=== PATIENT | female | born 1990 | race Caucasian/White ===

== ENCOUNTER 2019-10-29 05:07 | Emergency (ER) | payer OTHER ==
--- NOTE | 2019-10-29 05:40 | PDOC ---
History of Present Illness - General Stated Complaint: VOMITING Time Seen by Provider: 10/29/19 05:40 History Source: Patient Exam Limitations: No Limitations - History of Present Illness Initial Comments: 10/29/19 05:49 39y previously healthy F presenting w vomiting starting at 11pm, diarrhea starting few hours later w mild epigastric pain. Did not try any meds. Denies fever, chest pain, urinary symptoms. Past History - Past Medical History Allergies/Adverse Reactions: Allergies Allergy/AdvReac Type Severity Reaction Status Date / Time No Known Allergies Allergy Verified 10/29/19 05:56 Home Medications: Ambulatory Orders NK [No Known Home Medication] 10/29/19 Review of Systems - Review of Systems Constitutional: No: Chills, Fever HEENTM: No: Eye Pain, Nose Pain Respiratory: No: Cough, Shortness of Breath Cardiac (ROS): No: Chest Pain, Palpitations ABD/GI: Yes: Nausea, Vomiting. No: Abdominal Distended, Constipated, Diarrhea : No: Burning, Dysuria Musculoskeletal: No: Back Pain, Joint Pain Integumentary: No: Bruising, Flushing Neurological: No: Headache, Seizure Psychiatric: No: Anxiety, Depression Endocrine: No: Excessive Sweating, Intolerance to Cold, Intolerance to Heat Hematologic/Lymphatic: No: Anemia, Blood Clots *Physical Exam - Physical Exam General Appearance: Yes: Nourished, Appropriately Dressed, Mild Distress HEENT: positive: EOMI, SUNI, Normal Voice, Hearing Grossly Normal. negative: Scleral Icterus (R), Scleral Icterus (L) Respiratory/Chest: positive: Lungs Clear, Normal Breath Sounds. negative: Chest Tender, Respiratory Distress Cardiovascular: positive: Regular Rhythm, Regular Rate, S1, S2. negative: Edema , Murmur Gastrointestinal/Abdominal: positive: Normal Bowel Sounds, Tender (mild epigastric), Flat, Soft. negative: Organomegaly Musculoskeletal: negative: CVA Tenderness (R), CVA Tenderness (L) Extremity: positive: Delayed Capillary Refill Integumentary: positive: Normal Color, Dry Neurologic: positive: development planner II-XII NML intact, Fully Oriented, Alert, Normal Response, Responsive. negative: Sensory Deficit, Confused, Disoriented Medical Decision Making - Medical Decision Making 10/29/19 05:51 39y previously healthy F presenting w vomiting, diarrhea, mild epigastric pain. gastroenteritis vs . Low concern for pancreatitis vs cholecystitis ( neg russell) Given 1L NS, zofran, pepcid, maalox Anticipate DC home - pending labs Discharge - Discharge Information Problems reviewed: Yes Clinical Impression/Diagnosis: Vomiting Qualifiers: Vomiting type: unspecified Vomiting Intractability: non-intractable Nausea presence: with nausea Qualified Code(s): R11.2 - Nausea with vomiting, unspecified Condition: Improved Disposition: HOME - Follow up/Referral - Patient Discharge Instructions - Post Discharge Activity
[2019-10-29] MEDS ORDERED: SODIUM CHLORIDE 0.9% 500 ML INFUS.BAG IV ONE (05:46)
[2019-10-29] MEDS ORDERED: FAMOTIDINE 20 MG/50 ML IVPB 20 MG/50 ML MG IVPB ONE ×2 (05:46→06:18)
--- NOTE | 2019-10-29 05:53 | PDOC ---
Attending Attestation - Resident Resident Name: Hilda,Franck - ED Attending Attestation I have performed the following: I have examined & evaluated the patient, The case was reviewed & discussed with the resident, I agree w/resident's findings & plan - HPI HPI: 10/29/19 06:59 Pt comes with viral gastroenteritis. - Physicial Exam PE: 10/29/19 07:00 Pt is warm to the touch, but afebrile/ Pt has no flank pain Heart and lungs normal Abd flat soft NT ND no ext edema - Medical Decision Making 10/29/19 07:00 Pt will be hydrated. We placed and IV and allyn off labs. She will by reevaluated by the day team
[2019-10-29 06:02] VITALS: BMI 26.7
[2019-10-29] MEDS ORDERED: ONDANSETRON 4 MG/2 ML VIAL IVPUSH ONE (06:15)
[2019-10-29] MEDS ORDERED: MAG HYDROX/AL HYDROX/SIMETH 30 ML UNIT-DOSE CUP PO ONE (06:15)
[2019-10-29] MEDS ORDERED: MAG HYDROX/AL HYDROX/SIMETH 30 ML UNIT-DOSE CUP ONE (06:17)
[2019-10-29] MEDS ORDERED: ONDANSETRON 4 MG/2 ML VIAL ONE (06:18)
[2019-10-29 07:18] LABS: BASO % 0.2 % (0-2.0); HEMATOCRIT 42.5 % (32.4-45.2); HEMOGLOBIN 14.8 GM/dL (10.7-15.3); MCH 30.2 pg (25.7-33.7); MCHC 34.7 g/dl (32.0-36.0); MEAN CELL VOLUME 86.8 fl (80-96); MONO % 1.8 % (3.8-10.2); RBC 4.89 M/mm3 (3.60-5.2); RDW 12.1 % (11.6-15.6); WHITE BLOOD COUNT 10.8 K/mm3 (4.0-10.0)
[2019-10-29 07:20] LABS: PH,URINE 5.5 (5.0-8.0); URINE APPEARANCE CLOUDY; URINE BILIRUBIN NEGATIVE (NEGATIVE); URINE COLOR YELLOW; URINE GLUCOSE (UA) NEGATIVE (NEGATIVE); URINE KETONE 1+ (NEGATIVE); URINE LEUK ESTERASE NEGATIVE (NEGATIVE); URINE NITRITE NEGATIVE (NEGATIVE); URINE PROTEIN NEGATIVE (NEGATIVE); URINE UROBILINOGEN 0.2 mg/dL (0.2-1.0)
[2019-10-29 07:45] LABS: ALBUMIN 4.1 g/dl (3.4-5.0); BILIRUBIN,TOTAL 0.5 mg/dL (0.2-1); BLOOD UREA NITROGEN 18.1 mg/dL (7-18); CALCIUM 9.4 mg/dL (8.5-10.1); CREATININE 0.7 mg/dL (0.55-1.3); TOT PROT 8.4 g/dl (6.4-8.2)
[2019-10-29 11:23] LABS: ANISOCYTOSIS 1+; MACROCYTOSIS 0; OVALOCYTE 1+; PLATELET ESTIMATE DECREASED; TOXIC GRANULATION 2+
--- NOTE | 2019-10-29 11:58 | PDOC ---
*Physical Exam - Vital Signs Last Vital Signs Temp Pulse Resp BP Pulse Ox 98.5 F 82 17 115/84 100 10/29/19 05:15 10/29/19 05:15 10/29/19 05:15 10/29/19 05:15 10/29/19 05:15 ED Treatment Course - LABORATORY CBC & Chemistry Diagram: 10/29/19 06:45 10/29/19 06:45 - ADDITIONAL ORDERS Additional order review: Laboratory Results 10/29/19 10/29/19 10/29/19 06:45 06:45 06:45 Sodium Potassium Chloride Carbon Dioxide Anion Gap BUN Creatinine Est GFR (CKD-EPI)AfAm Est GFR (CKD-EPI)NonAf Random Glucose Lactic Acid 1.8 Calcium Total Bilirubin AST ALT Alkaline Phosphatase Total Protein Albumin Lipase Serum , Qual Negative Urine Color Yellow Urine Appearance Cloudy Urine pH 5.5 Ur Specific [place] 1.029 Urine Protein Negative Urine Glucose (UA) Negative Urine Ketones 1+ H Urine Blood Negative Urine Nitrite Negative Urine Bilirubin Negative Urine Urobilinogen 0.2 Ur Leukocyte Esterase Negative 10/29/19 06:45 Sodium 138 Potassium 4.0 Chloride 103 Carbon Dioxide 27 Anion Gap 7 L BUN 18.1 H Creatinine 0.7 Est GFR (CKD-EPI)AfAm 137.62 Est GFR (CKD-EPI)NonAf 118.74 Random Glucose 112 H Lactic Acid Calcium 9.4 Total Bilirubin 0.5 AST 20 ALT 25 Alkaline Phosphatase 58 Total Protein 8.4 H Albumin 4.1 Lipase 62 L Serum , Qual Urine Color Urine Appearance Urine pH Ur Specific [place] Urine Protein Urine Glucose (UA) Urine Ketones Urine Blood Urine Nitrite Urine Bilirubin Urine Urobilinogen Ur Leukocyte Esterase 10/29/19 06:45 RBC 4.89 MCV 86.8 MCHC 34.7 RDW 12.1 Neutrophils % 92.0 H Lymphocytes % 6.0 L Monocytes % 1.8 L Eosinophils % 0.0 Basophils % 0.2 - RADIOLOGY Radiology Studies Ordered: Category Date Time Status ABDOMEN & PELVIS CT WITH CONTR [CT] Stat CT Scan 10/29/19 08:41 Completed - Medications Given in the ED: ED Medications Discontinued Medications Generic Name Dose Route Start Last Admin Trade Name Freq PRN Reason Stop Dose Admin Al Hydroxide/Mg Hydroxide 30 ml 10/29/19 06:15 10/29/19 07:02 Mylanta Oral Suspension - PO 10/29/19 06:16 30 ml ONCE ONE Administration Famotidine/Sodium Chloride 20 mg in 50 mls @ 100 mls/hr 10/29/19 05:46 07:02 Pepcid 20 Mg Premixed Ivpb - IVPB 10/29/19 06:15 100 mls/hr ONCE ONE Administration Ondansetron HCl 4 mg 10/29/19 06:15 10/29/19 07:02 Zofran Injection IVPUSH 10/29/19 06:16 4 mg NOW ONE Administration Sodium Chloride 1,000 ml 10/29/19 05:46 10/29/19 07:02 Normal Saline - IV 10/29/19 05:47 1,000 ml ONCE ONE Administration Medical Decision Making - Medical Decision Making 10/29/19 11:53 S/O from night team: 39y previously healthy F presenting w vomiting, diarrhea, mild epigastric pain. Pt received 1L NS, zofran, pepcid, maalox On my exam, pt has persistent pain, complains of RLQ pain and epigastric pain CTAP done, no acute pathology. Likely viral gastroenteritis Pt safe for DC home with PCP f/u and strict return precautions Discharge - Discharge Information Problems reviewed: Yes Clinical Impression/Diagnosis: Vomiting Qualifiers: Vomiting type: unspecified Vomiting Intractability: non-intractable Nausea presence: with nausea Qualified Code(s): R11.2 - Nausea with vomiting, unspecified Condition: Improved Disposition: HOME - Admission No - Follow up/Referral - Patient Discharge Instructions Patient Printed Discharge Instructions: DI for Viral Gastroenteritis -- Adult Additional Instructions: Please see your Primary Doctor within the next 48 hours. increase your water intake and take over the counter Motrin for continued pain as listed on the packaging. Return to the ER for new or concerning symptoms including but not limited to: fevers, persistent right lower quadrant abdominal pain, inability to eat or drink. Thank you - Post Discharge Activity
[2019-10-29 12:23] VITALS: BP 112/71; PULSE 83; TEMP 98.8
[2019-10-29 12:39] LABS: PLATELET COUNT 106 K/MM3 (134-434)
[2019-10-29 12:40] LABS: MEAN PLT VOLUME 10.6 fl (7.5-11.1)
== END 2019-10-29 12:23 | disposition home or self-care (01) ==
LOC: EDBD 05:07 → JER 05:07
DX: A08.4 Viral intestinal infection, unspecified (principal); B97.89 Other viral agents as the cause of diseases classified elsewhere
CPT/HCPCS: 36415; 74177-TC; 80053; 81003; 83605; 83690; 84703; 85025; 87086; 87804; 99284-25; Q9967